=== PATIENT | female | born 1985 | race Two or more races ===

== ENCOUNTER 2017-09-12 09:56 | Emergency (ER) | payer MEDICAID ==
[~2017-09-12] VITALS: Ht 172.7 cm; Wt 102.5 kg
[2017-09-12 10:06] VITALS: BP 154/91
== END 2017-09-12 12:26 | disposition home or self-care (01) ==
LOC: ER 09:56
DX: J20.9 Acute bronchitis, unspecified (principal); J45.909 Unspecified asthma, uncomplicated
CPT/HCPCS: 71020

== ENCOUNTER 2017-11-23 20:42 | Emergency (ER) | payer MEDICAID ==
[~2017-11-23] VITALS: Ht 172.7 cm; Wt 98.9 kg
[2017-11-23 21:20] LABS: Urine Specific Gravity 1.018 (1.001-1.035)
[2017-11-23 21:21] LABS: Urine Blood Trace /uL (Negative)
[2017-11-23 21:51] LABS: Urine WBC 10 /hpf (0 - 5); Urine WBC Clumps None seen /hpf (None Seen)
[2017-11-23 21:52] LABS: Urine Bacteria FEW /hpf (None Seen)
[2017-11-24 06:10] VITALS: BP 117/74
== END 2017-11-24 07:14 ==
LOC: ER 20:42
DX: O20.0 Threatened abortion (principal); O26.891 Other specified pregnancy related conditions, first trimester; J45.909 Unspecified asthma, uncomplicated; Z3A.01 Less than 8 weeks gestation of pregnancy
CPT/HCPCS: 36415; 76801; 76817; 81001; 81025; 84702

== ENCOUNTER 2020-03-22 14:40 | Emergency (ER) | payer MEDICAID, OTHER ==
[~2020-03-22] VITALS: Ht 172.7 cm; Wt 117.9 kg
[2020-03-22 14:58] VITALS: BP 131/96
[2020-03-22] MEDS ORDERED: FLUORESCEIN SOD 1 MG TEST STRIP OP ONE (15:15)
[2020-03-22] MEDS ORDERED: TETRACAINE HCL 0.5% OPTH(EYE) SOLN 4ML EACHEYE ONE (15:15)
== END 2020-03-22 16:06 | disposition home or self-care (01) ==
LOC: ER 14:40
DX: S05.02XA Injury of conjunctiva and corneal abrasion without foreign body, left eye, initial encounter (principal); H10.12 Acute atopic conjunctivitis, left eye; J45.909 Unspecified asthma, uncomplicated; X58.XXXA Exposure to other specified factors, initial encounter; Y93.89 Activity, other specified; Y92.89 Other specified places as the place of occurrence of the external cause; Y99.8 Other external cause status